=== PATIENT | female | born 1950 | race Caucasian/White ===

== ENCOUNTER 2020-11-03 15:45 | Emergency (ER) | payer MEDICARE, SELFPAY ==
[2020-11-03 16:22] VITALS: BP 112/70; PULSE 67; RESP 18; TEMP 36.8; O2SAT 98; BMI 25.0
--- NOTE | 2020-11-03 16:36 | XR_ITS ---
PROCEDURE INFORMATION: Exam: XR Right Ankle Exam date and time: 11/03/2020 4:36 PM Age: 70 years old Clinical indication: Injury or trauma; Fall; Blunt trauma; Patient HX: Patient twisted right ankle and fell while wearing flip flops. TECHNIQUE: Imaging protocol: XR Right ankle. Views: 3 or more views. COMPARISON: No relevant prior studies available. FINDINGS: Bones/joints: Minimal cortical comminution at the tip of the medial malleolus, favoring a tiny avulsion injury. No other acutely displaced fractures are identified. There is no evidence of joint dislocation. No aggressive osseous lesions. Soft tissues: There is soft tissue swelling. IMPRESSION: Tiny avulsion injury at the tip of the medial malleolus.
--- NOTE | 2020-11-03 16:36 | XR_ITS ---
PROCEDURE INFORMATION: Exam: XR Left Knee Exam date and time: 11/03/2020 4:36 PM Age: 70 years old Clinical indication: Injury or trauma; Fall; Blunt trauma; Patient HX: Patient was wearing flip flops when she twisted right ankle and fell injuring left knee. TECHNIQUE: Imaging protocol: XR Left knee. Views: 3 views. COMPARISON: No relevant prior studies available. FINDINGS: Bones/joints: Osseous anatomic alignment is well preserved. No acutely displaced fracture or dislocation. Joint spaces are well preserved. Soft tissues: No significant soft tissue swelling. IMPRESSION: No acute findings.
[2020-11-03 17:30] VITALS: BP 112/70; PULSE 67; RESP 18; TEMP 36.8; O2SAT 98; BMI 25.0
--- NOTE | 2020-11-03 17:57 | HMH.EDUTC ---
[facility] [place] Disposition Clinical Impression: Avulsion fracture of ankle Qualifiers: Encounter type: initial encounter Fracture type: closed Laterality: right Qualified Code(s): S82.891A - Other fracture of right lower leg, initial encounter for closed fracture Disposition: Home, Self-Care Condition on Discharge: Good Instructions: DI for Ankle Fracture Additional Instructions: Weightbearing as tolerated rest Ice with cold pack for 20 minutes remove may repeat for comfort every hour Bret wrap for support and swelling no less in the shower. Be sure not too tight but not to lose either Elevate with ankle above your heart as much as possible to help reduce swelling and therefore pain Ibuprofen every 6 hours as needed for pain or inflammation. If needs something more you can take Tylenol every 4 hours as needed as long as her primary care has told he was okayed for you to take both. If improving any do not need to follow-up you can bring begin exercising 2-3 weeks after injury. Follow-up immediately if new or worsening symptoms or no noticeable improvement over the next 3-[address] munoz on wednesday for appointment Referrals: Annemarie Medellin PA [Primary Care Provider] - Deanna Munoz DPM [Staff Physician] - Time of Disposition: 18:06 Medical Decision Making - Robb Inquiry Pt receiving controlled substance: No Vital Signs: 11/03/20 16:22 Temperature 98.2 F Temperature Source Oral Pulse Rate [Right] 67 Respiratory Rate 18 Blood Pressure [Right Arm] 112/70 Blood Pressure Mean [Right Arm] 84 02 Sat by Pulse Oximetry 98 Oxygen Delivery Method Room Air [facility] [place] HPI - General Chief complaint: Urgent Treatment Center Stated complaint: AO [id number] @[id number] fell injurede ankle and knee Time Seen by Provider: 11/03/20 18:01 Mode of Arrival: Wheelchair Source of Information: Patient Limitations: No Limitations Description of Symptoms (Recalled from Triage Doc. by RN): Patient presents to ED triage with right ankle swelling and left knee pain after a mechanical fall this afternoon. Patient denies LOC, denies hitting her head. - History of Present Illness Provider Complaint: 70 yr old female presents with right ankle swelling and left knee pain after a fall this afternoon. Patient denies LOC, denies hitting her head. - Related Data Allergies Allergy/AdvReac Type Severity Reaction Status Date / Time DOXYCYCLINE Allergy Unknown Uncoded 03/02/17 14:32 [facility] History - Hepatitis A Screen Attestation statement:: This patient has been screened for Hepatitis A risk factors. I have reviewed the patient's past medical history: Yes ROS Obtained: Yes Systems reviewed as appropriate & no additional complaints - Constitutional Constitutional: Reports system reviewed and no additional complaints, except as docu, Denies fever(s) - Eyes Eyes: Reports system reviewed and no additional complaints, except as docu, Denies blurry vision - ENT Ears, Nose, Mouth, and Throat: Reports system reviewed and no additional complaints, except as docu, Denies sore throat - Cardiovascular Cardiovascular: Reports system reviewed and no additional complaints, except as docu, Denies chest pain at rest - Respiratory Respiratory: Reports system reviewed and no additional complaints, except as docu, Denies cough - Gastrointestinal Gastrointestingal: Reports: system reviewed and no additional complaints, except as docu. Denies: abdominal pain - Genitourinary Female Genitourinary: Reports system reviewed and no additional complaints, except as docu - Musculoskeletal Musculoskeletal: Reports system reviewed and no additional complaints, except as docu, Reports as per HPI, Reports joint pain, Reports joint stiffness, Reports limited range of motion - Integumentary/Breasts Skin/Breast: Reports system reviewed and no additional complaints, except as docu, Denies rash - Neurologic Neurologic: Reports system reviewed and no additional complaints, ex
[2020-11-03 18:22] VITALS: BP 112/70; PULSE 67; RESP 18; TEMP 36.8; O2SAT 98
== END 2020-11-03 18:23 | disposition home or self-care (01) ==
LOC: ER 16:34 → UTC 16:35
PROVIDERS: Emergency Provider Nurse Practitioner Family; PCP Nurse Practitioner Family
DX: S82.891A Other fracture of right lower leg, initial encounter for closed fracture (principal)
CPT/HCPCS: 29515; 73562; 73610; 99202; G0463

== ENCOUNTER → 2020-12-10 09:29 | Outpatient (CLI) | payer MEDICARE, SELFPAY ==
--- NOTE | 2020-12-10 09:33 | XR_ITS ---
PROCEDURE: XR ANKLE WT BEARING RT MIN 3V CLINICAL INDICATION: fracture eval COMPARISON: CR XR ANKLE RT MIN 3V from 11/03/2020 FINDINGS: Bones: Small calcific density at the tip the medial malleolus once again noted not significantly changed. May represent a small avulsion injury age indeterminate. Joints: The joint spaces are well-preserved. No significant degenerative/arthritic changes. No erosive changes evident. Other findings:None. IMPRESSION: No change small suspected avulsion fracture at the tip the medial malleolus Dictated by: Del Willett MD 12/10/2020 12:02 Del Willett MD in [place] 12/10/2020 12:02
== END ==
LOC: RAD 09:31
PROVIDERS: PCP Nurse Practitioner Family; Visit Provider Nurse Practitioner
DX: S82.51XA Displaced fracture of medial malleolus of right tibia, initial encounter for closed fracture (principal)
CPT/HCPCS: 73610

== ENCOUNTER 2021-07-10 14:25 | Emergency (ER) | payer MEDICARE, SELFPAY ==
[2021-07-10 14:35] VITALS: BP 183/78; PULSE 66; RESP 18; TEMP 36.6; O2SAT 98; BMI 24.7
[2021-07-10 15:18] VITALS: BP 190/77; PULSE 66; RESP 18; TEMP 36.7; O2SAT 98; BMI 24.7
--- NOTE | 2021-07-10 15:42 | HMH.EDUTC ---
[facility] [place] Disposition Clinical Impression: Mucous cyst of digit of right hand Disposition: Home, Self-Care Condition on Discharge: Good Instructions: DI for Epidermal Cyst Additional Instructions: Rest the extremity, Elevate the extremity as tolerated while you are resting. Take ibuprofen for pain. Apply the topical antibiotic ointment as directed. Follow up with Dr. Rodriguez (orthopedics). I put in a referral but you need to call his office and schedule an appointment. It is best if only an orthopedic physician or a hand surgeon cuts or drains anything on your hand. Follow up with your regular doctor. GO TO THE ER FOR ANY WORSENING SYMPTOMS Prescriptions: Mupirocin [Bactroban 2% Ointment 22gm tube] 1 applicatio TP TID 7 Days #1 gm Transmission Status: Received by [facility] #[id number] Referrals: Martha Mccrary APRN [Primary Care Provider] - Des Rodriguez MD [Staff Physician] - Time of Disposition: 15:57 Medical Decision Making - Medical Records Medical records reviewed: No: I reviewed the patient's medical records. - Robb Inquiry Pt receiving controlled substance: No Vital Signs: 07/10/21 14:35 07/10/21 15:18 07/10/21 16:05 Temperature 97.8 F 98.1 F 98.1 F Temperature Source Oral Oral Pulse Rate 66 Pulse Rate [Left Radial] 66 66 Respiratory Rate 18 18 18 Blood Pressure 190/77 H Blood Pressure [Left Arm] 183/78 H 190/77 H Blood Pressure Mean [Left Arm] 113 114 Blood Pressure Source [Left Arm] Automatic Cuff Blood Pressure Position [Left Arm] Sitting 02 Sat by Pulse Oximetry 98 98 Oxygen Delivery Method Room Air [facility] [place] HPI - General Stated complaint: rt ring finger pain Time Seen by Provider: 07/10/21 15:42 Mode of Arrival: Ambulatory Source of Information: Patient Limitations: No Limitations Description of Symptoms (Recalled from Triage Doc. by RN): pt states that she has a cyst on her right ring finger. she states that it has been there for awhile. and she gets them often HEENT Symptoms (Recalled from RN notes): No Resp Symptoms (Recalled from RN notes): No Skin Symptoms (Recalled from RN notes): No MS Symptoms (Recalled from RN notes): Yes Functional Status (Recalled from RN notes): wnl - History of Present Illness Provider Complaint: She has an open cyst on the palm side of her right right finger. This has been present for the past 2 to 3 weeks. She states that it has had some redness around it and some whitish drainage has came from it. She states that it catches on everything and that causes it to hurt. - Related Data Home Medications Medication Instructions Recorded Confirmed albuterol sulfate 2.5 mg CONTINUOUS NEBULIZATION ml 11/06/20 12/10/20 albuterol sulfate 90 mcg/actuation 1 puff INHALATION g 11/06/20 12/10/20 aerosol inhaler cyanocobalamin (vitamin B-12) 1,000 mcg PO tab 11/06/20 12/10/20 1,000 mcg tablet fluticasone fur. 100 mcg-umeclid ea INHALATION 11/06/20 12/10/20 62.5 mcg-vilant 25 mcg inhalat.powder hydroxyzine pamoate 50 mg capsule 50 mg PO cap 11/06/20 12/10/20 lisinopril 30 mg tablet 30 mg PO tab 11/06/20 12/10/20 meloxicam 15 mg tablet 15 mg PO tab 11/06/20 12/10/20 montelukast 10 mg tablet 10 mg PO tab 11/06/20 12/10/20 paroxetine HCl 40 mg tablet tab PO 11/06/20 12/10/20 pravastatin 20 mg tablet 20 mg PO tab 11/06/20 12/10/20 Previous Rx's Medication Instructions Recorded Mupirocin [Bactroban 2% Ointment 1 applicatio TP TID 7 Days #1 gm 07/10/21 22gm tube] Allergies Allergy/AdvReac Type Severity Reaction Status Date / Time doxycycline Allergy nausea Verified 12/10/20 10:29 DOXYCYCLINE Allergy Unknown Uncoded 03/02/17 14:32 - Worker's Comp Is this a Worker's Comp case?: No Is this an H Worker's Comp?: No Is this a [place] Worker's Comp?: No [facility] History - Hepatitis A Screen Attestation statement:: This patient has been screened for Hepatitis A risk factors.
[2021-07-10 16:05] VITALS: BP 190/77; PULSE 66; RESP 18; TEMP 36.7
== END 2021-07-10 16:08 | disposition home or self-care (01) ==
LOC: ER 14:37 → UTC 14:38
PROVIDERS: Emergency Provider Nurse Practitioner Family; PCP Nurse Practitioner Family
DX: M67.441 Ganglion, right hand (principal); I10 Essential (primary) hypertension; E78.5 Hyperlipidemia, unspecified; M19.90 Unspecified osteoarthritis, unspecified site; J44.9 Chronic obstructive pulmonary disease, unspecified; F32.A Depression, unspecified; F17.210 Nicotine dependence, cigarettes, uncomplicated; Z79.51 Long term (current) use of inhaled steroids; Z79.899 Other long term (current) drug therapy; Z88.8 Allergy status to other drugs, medicaments and biological substances; Z85.9 Personal history of malignant neoplasm, unspecified; Z82.49 Family history of ischemic heart disease and other diseases of the circulatory system; Z83.438 Family history of other disorder of lipoprotein metabolism and other lipidemia; Z83.3 Family history of diabetes mellitus
CPT/HCPCS: 99213; G0463

== ENCOUNTER 2023-05-04 11:47 | Emergency (ER) | payer SELFPAY ==
[2023-05-04] VITALS (11 sets, daily range): BP systolic 151–177; BP diastolic 63–132; PULSE 58–68; RESP 16–20; TEMP 36.6; O2SAT 94–99; BMI 25.0
--- NOTE | 2023-05-04 12:05 | PC.NURSE ---
DR ISRAEL AT BEDSIDE
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
[2023-05-04] MEDS: METHOCARBAMOL 500MG TABLET 750 MG PO (12:16)
[2023-05-04] MEDS: predniSONE 20MG TAB 40 MG PO (12:17)
--- NOTE | 2023-05-04 12:21 | PC.NURSE ---
PT TO CT
--- NOTE | 2023-05-04 12:25 | PC.NURSE ---
PT RETURNED FROM CT
== END 2023-05-04 14:24 | disposition home or self-care (01) ==
PROVIDERS: Emergency Provider Emergency Medicine; PCP Nurse Practitioner Family
DX: M54.12 Radiculopathy, cervical region (principal); M54.2 Cervicalgia; M79.601 Pain in right arm; J44.9 Chronic obstructive pulmonary disease, unspecified; F17.200 Nicotine dependence, unspecified, uncomplicated; V89.9XXA Person injured in unspecified vehicle accident, initial encounter
CPT/HCPCS: 72125; 99284

== ENCOUNTER 2023-12-22 16:00 | Outpatient (RCR) | payer MEDICARE, SELFPAY | END 2023-12-22 23:59 | disposition home or self-care (01) | LOC: PT 16:00 | PROVIDERS: Visit Provider Emergency Medicine | DX: M54.2 Cervicalgia (principal) | CPT/HCPCS: 97014; 97035; 97110; 97140; 97163; G0283 ==

== ENCOUNTER 2024-01-12 14:23 | Outpatient (POV) | payer MEDICARE, SELFPAY ==
[2024-01-12 14:35] VITALS: BP 130/58; PULSE 72; RESP 18; O2SAT 99; BMI 24.6
--- NOTE | 2024-01-12 14:54 | EXP.PAIN.OV ---
HPI Data of Consult Patient: new to practice Consult date: 01/12/24 Requesting Physician: Smita Kenney APRN Primary Care Provider: Martha Mccrary APRN Consult Narrative Reason for consult: Left shoulder pain History of present illness: Ms. Guillen is a 73 year old female who presents today as a new patient. She is a referral from Heather Mccrary's office. Today she rates her pain a 4 out of 10 however does state that with increased activity the pain has gotten much worse to at least a 5 or 6 out of 10. Patient states that she has had chronic left shoulder pain for years and that she did even see her office about 3 to 4 years ago and had injections with us. She states that these injections would significantly improve her left shoulder and that it got to where they work so well she did not need to come back. Patient does state that this episode has been going on for the last month of worsening pain. She states it was very severe the last couple of weeks and that she had limited range of motion. Patient states that the pain is a pins and needle sensation and it does interfere with her ability perform activities of daily living such as cooking and cleaning. Patient has tried [id number] medications along with gabapentin, heat and ice and topicals with minimal relief. Patient has been in physical therapy for the last 4 weeks and states this has seemed to help some. Patient does state overall that it has eased up somewhat with the overall combination of gabapentin and ice and physical therapy. Patient is interested in additional injection therapy. Her Robb has been reviewed and is appropriate. CC: Smita Kenney APRN [facility] Disclaimer: The information contained in this section may have been updated after the patient was seen, as this information can be updated by other users. Social History Smoking Status: Current every day smoker alcohol intake: never substance use type: denies use current occupational status: retired Travel in the last 8 weeks: None Review of Systems Review of Systems Review of systems:: pertinent systems reviewed and negative unless documented below Review of systems (narrative): Review of Systems: General: No recent weight changes, no fever, no sleep disturbances Respiratory: No cough, no shortness of air, no recurring pulmonary infections Cardiovascular/peripheral vascular: No chest pain, no palpitations, no edema, no shortness of breath Gastrointestinal: No new onset incontinence, normal bowel movements reported Genitourinary: No new onset incontinence Musculoskeletal: Left shoulder pain Psychiatric: [Normal mood/affect] Neurological: [Denies weakness in extremities], [denies balance issues] Meds Home Medications and Allergies Home Medications ?Medication ?Instructions ?Recorded ?Confirmed ?Type albuterol sulfate 2.5 mg/3 mL 2.5 mg continuous nebulization 11/06/20 12/10/20 History (0.083 %) solution for nebulization albuterol sulfate 90 mcg/actuation 1 puff inhalation 11/06/20 12/10/20 History aerosol inhaler cyanocobalamin (vitamin B-12) 1,000 mcg PO 11/06/20 12/10/20 History 1,000 mcg tablet (Vitamin B-12) fluticasone fur. 100 mcg-umeclid ea inhalation 11/06/20 12/10/20 History 62.5 mcg-vilant 25 mcg inhalat.powder (Trelegy Ellipta) hydroxyzine pamoate 50 mg capsule 50 mg PO 11/06/20 12/10/20 History lisinopril 30 mg tablet 30 mg PO 11/06/20 12/10/20 History meloxicam 15 mg tablet 15 mg PO 11/06/20 12/10/20 History montelukast 10 mg tablet 10 mg PO 11/06/20 12/10/20 History paroxetine HCl 40 mg tablet tab PO 11/06/20 12/10/20 History pravastatin 20 mg tablet 20 mg PO 11/06/20 12/10/20 History mupirocin 2 % topical ointment 1 applicatio TP TID 7 days ##1 07/10/21 Rx methocarbamol 750 mg tablet 750 mg PO TID 5 days #15 tabs 05/04/23 Rx prednisone 20 mg tablet 40 mg (2 x 20 mg) PO DAILY 5 days 05/04/23 Rx #10 tabs New Prescriptions to Start Prescriptions: Allergies Allergy/AdvReac Type Severity Reaction Status Date / Time doxycycline Allergy nausea Verified 12/10/20 10:29 DOXYCYCLINE Allergy Unknown Uncoded 03/02/17 14:32 Objective Narrative: Physical Exam: General: Alert and oriented x3, no acute distress, pleasant and cooperative Lungs: Respirations even and unlabored, symmetrical chest expansion Eyes: PERRL Musculoskeletal: Flexion and extension of left shoulder somewhat guarded secondary to pain, popping and clicking with range of motion movements Neurological: Speech clear, no gross sensory deficit Assessment and Plan *Assessment and plan (1) Left shoulder pain: Status: Acute Qualifiers: Chronicity: chronic Qualified Code(s): M25.512 - Pain in left shoulder; G89.29 - Other chronic pain Category: Medical Code(s): M25.512 - Pain in left shoulder Plan Patient is experiencing significant pain throughout her left shoulder with limited range of motion and popping and clicking. Patient was counseled that she may benefit from a left shoulder intra-articular injection. Risk and benefits were discussed with the patient and she would like to proceed forward with this plan of care. Patient has tried and failed conservative therapy including continued at home stretching exercise for longer than 12 weeks as well as ongoing physical therapy in the last 4 weeks. Patient will be scheduled for a left shoulder intra-articular injection. Patient will be also ordered a compounded cream. Patient has been instructed to contact the clinic with any concerns before the next appointment. Dr. Carr has reviewed this note and agrees with this plan of care. This note was dictated using voice recognition software and make contain errors or omissions. All injections are used with Lidocaine or Bupivacaine and Depo Medrol.
== END 2024-01-12 23:59 | disposition home or self-care (01) ==
LOC: SC.PAIN 14:24
PROVIDERS: PCP Nurse Practitioner Family; Visit Provider Nurse Practitioner Family
DX: M25.512 Pain in left shoulder (principal); G89.29 Other chronic pain; Z73.89 Other problems related to life management difficulty
CPT/HCPCS: 99202; G0463

== ENCOUNTER 2024-02-08 11:14 | Day surgery (SDC) | payer MEDICARE, SELFPAY ==
[2024-02-08 11:36] VITALS: BP 151/48; PULSE 80; RESP 16; TEMP 36.5; O2SAT 97; BMI 24.4
[2024-02-08] MEDS: methylPREDNISolone ACETATE 80MG/ML VIAL 80 MG (11:56)
[2024-02-08] MEDS: LIDOCAINE 1% 5ML PF VIAL 5 ML (11:56)
[2024-02-08] MEDS: BUPIVACAINE 0.25% 10ML INJ 25 MG IJ (11:56)
--- NOTE | 2024-02-08 12:00 | EXP.PAIN.PRO ---
Procedure Date: 02/08/24 Time: 11:45 Anesthesiologist:: Oli Nuñez CRNA Complications:: None Pre-procedure Diagnosis:: DJD left shoulder. Chronic left shoulder pain. Post-procedure Diagnosis:: Same. Indications for Procedure:: Patient is a very pleasant 73-year-old female who comes our clinic today for left intra-articular shoulder injection of cortisone and local anesthetic. Patient describes left shoulder pain as intermittent, dull, sharp, stabbing. Patient has 5/5 strength in the left arm. However, limited range of motion secondary to left shoulder pain. She rates her pain today 5/10. However, late last week her pain was 10/10. Procedure Details:: Procedure Details: Left shoulder intra-articular injection Informed consent was obtained risk and benefits of the procedure were explained to the patient. Patient was taken to the procedure room. The Left shoulder was prepped using ChloraPrep. A 25-gauge needle was used posteriorly to inject 10 mL bupivacaine 0.25% and Depo-Medrol 40 mg. Patient tolerated procedure well with no complications. Plan and Disposition:: Patient was discharged without incident.
[2024-02-08 12:01] VITALS: BP 155/74; PULSE 73; RESP 16; O2SAT 97
== END 2024-02-08 12:01 | disposition home or self-care (01) ==
PROVIDERS: PCP Nurse Practitioner Family; Visit Provider Nurse Anesthetist, Certified Registered
DX: M19.012 Primary osteoarthritis, left shoulder (principal); M25.512 Pain in left shoulder; G89.29 Other chronic pain
CPT/HCPCS: 20610; J1010

== ENCOUNTER 2024-03-02 13:30 | Outpatient (POV) | payer MEDICARE, SELFPAY ==
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
[2024-03-02 15:26] VITALS: BP 123/73; PULSE 73; RESP 14; O2SAT 97; BMI 24.4
== END 2024-03-02 23:59 | disposition home or self-care (01) ==
LOC: SC.PAIN 13:31
PROVIDERS: PCP Nurse Practitioner Family; Visit Provider Nurse Practitioner Family
DX: M50.10 Cervical disc disorder with radiculopathy, unspecified cervical region (principal); F17.210 Nicotine dependence, cigarettes, uncomplicated; Z73.89 Other problems related to life management difficulty
CPT/HCPCS: 99212; G0463

== ENCOUNTER 2024-03-28 12:32 | Day surgery (SDC) | payer MEDICARE, SELFPAY ==
[2024-03-28 13:00] VITALS: BP 150/69; PULSE 70; RESP 16; TEMP 36.8; O2SAT 95; BMI 24.4
[2024-03-28] MEDS: IOPAMIDOL-200 (41%);10ML VIAL IV (13:18)
[2024-03-28 13:24] VITALS: BP 132/78; PULSE 69; RESP 18; O2SAT 95
--- NOTE | 2024-03-28 13:40 | P.PCN_ITS ---
Procedure Date: 03/28/24 Time: 13:15 Anesthesiologist:: Oli Nuñez CRNA Complications:: None Pre-procedure Diagnosis:: Degenerative disc cervical spine multilevels. Cervical radiculopathy. Cervical spondylosis. Cervical disc bulge C5-6, C6-7. Post-procedure Diagnosis:: Same. Indications for Procedure:: Patient is a pleasant 73-year-old female comes our clinic today for cervical epidural steroid injection. Patient describes cervical neck pain as posterior, dull, aching. Also, bilateral shoulder and arm radicular symptoms at times. She rates her pain 8/10. Procedure Details:: Procedure:Cervical epidural steroid injection Informed consent was obtained and the risks and benefits of the procedure were explained to the patient. The patient was taken to the procedure room and noninvasive monitors placed, including noninvasive blood pressure cuff and pulse oximeter. The neck was prepped using Chloraprep as a cleansing solution. The C6- C7 interspace was viewed using fluroscopy. The skin and subcutaneous tissues were anesthetized using lidocaine 1.5% and a 25-gauge needle. After this an 18- gauge Touhy epidural needle was placed into the C6-C7 interspace under fluroscopy guidance and advanced using loss of resistance to air until the epidural space was encountered. After confirmation of needle placement in the epidural space using contrast dye, a solution containing normal saline, 2 mL and Depo-Medrol 80 mg was incrementally injected into the cervical epidural space.~ The patient tolerated the procedure well with no complications. The patient was observed in the Pain Clinic and then discharged home neurologically intact. Plan and Disposition:: Patient was discharged without incident.
== END 2024-03-28 13:24 | disposition home or self-care (01) ==
PROVIDERS: PCP Nurse Practitioner Family; Visit Provider Nurse Anesthetist, Certified Registered
DX: M50.30 Other cervical disc degeneration, unspecified cervical region (principal); M47.22 Other spondylosis with radiculopathy, cervical region
CPT/HCPCS: 62321; J1010; Q9966

== ENCOUNTER 2024-04-26 13:08 | Outpatient (POV) | payer MEDICARE, SELFPAY ==
--- NOTE | 2024-04-26 13:38 | EXP.PAIN.SOA ---
[facility] Disclaimer: The information contained in this section may have been updated after the patient was seen, as this information can be updated by other users. Medical History (Updated 03/02/24 @ 14:04 by Smita Kenney APRN) HLD (hyperlipidemia) High blood pressure Social History Smoking Status: Current every day smoker alcohol intake: never substance use type: denies use current occupational status: other Travel in the last 8 weeks: None PM Subjective & Objective Subjective Subjective:: Patient is a pleasant 74-year-old female who presents today for follow-up of cervical epidural steroid injection C6-C7 on 03/28/2024. Today she rates her pain a 0 out of 10. Patient states she has had at least 80% improvement following this injection and feels like it is still helping continuously. Patient states she has been able to move around more with decreased pain and improved function. Patient denies any other changes. Patient states that her left shoulder that we had done an intra-articular injection in January that did 75% improvement is still seeming to be working. Her Robb has been reviewed and is appropriate. Review of Systems: General: No recent weight changes, no fever, no sleep disturbances Respiratory: No cough, no shortness of air, no recurring pulmonary infections Cardiovascular/peripheral vascular: No chest pain, no palpitations, no edema, no shortness of breath Gastrointestinal: No new onset incontinence, normal bowel movements reported Genitourinary: No new onset incontinence Musculoskeletal: Neck pain Psychiatric: [Normal mood/affect] Neurological: [Denies weakness in extremities], [denies balance issues] Pain at rest (0-10 scale): 0 Objective Objective:: Physical Exam: General: Alert and oriented x3, no acute distress, pleasant and cooperative Lungs: Respirations even and unlabored, symmetrical chest expansion Eyes: PERRL Musculoskeletal: Flexion and extension of cervical [spine] within normal limits Neurological: Speech clear, no gross sensory deficit Has patient had previous pain injection?: Yes Percent improvement in pain since last injection: 80% Conservative treatment options previously tried: Home exercise plan Length of treatment: Longer than 12 weeks Meds Home Medications and Allergies Home Medications ?Medication ?Instructions ?Recorded ?Confirmed ?Type albuterol sulfate 2.5 mg/3 mL 2.5 mg continuous nebulization . 11/06/20 03/28/24 History (0.083 %) solution for nebulization albuterol sulfate 90 mcg/actuation 1 puff inhalation . 11/06/20 03/28/24 History aerosol inhaler cyanocobalamin (vitamin B-12) 1,000 mcg PO . 11/06/20 03/28/24 History 1,000 mcg tablet (Vitamin B-12) fluticasone fur. 100 mcg-umeclid 0 ea inhalation . 11/06/20 03/28/24 History 62.5 mcg-vilant 25 mcg inhalat.powder (Trelegy Ellipta) hydroxyzine pamoate 50 mg capsule 50 mg PO DAILY 11/06/20 03/28/24 History lisinopril 30 mg tablet 30 mg PO DAILY 11/06/20 03/28/24 History meloxicam 15 mg tablet 15 mg PO DAILY 11/06/20 03/28/24 History montelukast 10 mg tablet 10 mg PO DAILY 11/06/20 03/28/24 History paroxetine HCl 40 mg tablet 20 tab PO DAILY 11/06/20 03/28/24 History pravastatin 20 mg tablet 20 mg PO DAILY 11/06/20 03/28/24 History mupirocin 2 % topical ointment 1 applicatio TP TID 7 days ##1 07/10/21 03/28/24 Rx methocarbamol 750 mg tablet 750 mg PO TID 5 days #15 tabs 05/04/23 03/28/24 Rx New Prescriptions to Start Prescriptions: Allergies Allergy/AdvReac Type Severity Reaction Status Date / Time doxycycline Allergy nausea Verified 03/28/24 13:00 Assessment and Plan *Assessment and plan (1) Degenerative disc disease, cervical: Status: Acute Category: Medical Code(s): M50.30 - Other cervical disc degeneration, unspecified cervical region (2) Left shoulder pain: Status: Acute Qualifiers: Chronicity: chronic Qualified Code(s): M25.512 - Pain in left shoulder; G89.29 - Other chronic pain Category: Medical Code(s): M25.512 - Pain in left shoulder Plan Patient has had significant improvement following her cervical epidural and does not require any additional injection therapy at this time. Patient will return to clinic in 6 weeks for reevaluation of symptoms and plan of care. Patient has been instructed to contact the clinic with any concerns before the next appointment. Dr. Carr has reviewed this note and agrees with this plan of care. This note was dictated using voice recognition software and make contain errors or omissions. All injections are used with Lidocaine, Bupivacaine and Depo Medrol. Occasionally urine drug screen is needed to verify patient's compliance with our office pain contract. This is ordered based off specific treatments related to chronic pain with the potential to abuse certain medications.
[2024-04-26 13:53] VITALS: BP 122/55; PULSE 73; RESP 18; O2SAT 95; BMI 25.1
== END 2024-04-26 23:59 | disposition home or self-care (01) ==
LOC: SC.PAIN 13:09
PROVIDERS: PCP Nurse Practitioner Family; Visit Provider Nurse Practitioner Family
DX: M50.30 Other cervical disc degeneration, unspecified cervical region (principal); M25.512 Pain in left shoulder; G89.29 Other chronic pain; F17.200 Nicotine dependence, unspecified, uncomplicated
CPT/HCPCS: 99212; G0463

== ENCOUNTER 2024-07-26 09:47 | Outpatient (POV) | payer MEDICARE, SELFPAY ==
--- NOTE | 2024-07-26 10:01 | A.OFFVIS_ITS ---
[facility] Disclaimer: The information contained in this section may have been updated after the patient was seen, as this information can be updated by other users. Medical History HLD (hyperlipidemia) High blood pressure Social History Smoking Status: Current every day smoker alcohol intake: never substance use type: denies use current occupational status: other Travel in the last 8 weeks?: None PM Subjective & Objective Subjective Subjective:: Patient is a pleasant 74-year-old female who presents today for worsening neck and radiating pain to her bilateral shoulders and down her right arm with numbness and tingling. She rates this a 9 out of 10. She denies any new trauma or injury. Patient does state that she feels like her last injection has officially worn off and that this pain started to increase as of last week. Patient does state the pain is interfering with her ability perform activities of daily living such as cooking and cleaning. Patient does want to see about additional injections as it did provide significant relief. Her Robb has been reviewed and is appropriate. Review of Systems: General: No recent weight changes, no fever, no sleep disturbances Respiratory: No cough, no shortness of air, no recurring pulmonary infections Cardiovascular/peripheral vascular: No chest pain, no palpitations, no edema, no shortness of breath Gastrointestinal: No new onset incontinence, normal bowel movements reported Genitourinary: No new onset incontinence Musculoskeletal: Neck pain, bilateral shoulder pain, right arm numbness tingling Psychiatric: [Normal mood/affect] Neurological: [Denies weakness in extremities], [denies balance issues] Pain at rest (0-10 scale): 9 Objective Objective:: Physical Exam: General: Alert and oriented x3, no acute distress, pleasant and cooperative Lungs: Respirations even and unlabored, symmetrical chest expansion Eyes: PERRL Musculoskeletal: Flexion and extension of cervical [spine] somewhat guarded secondary to pain, [antalgic gait noted] positive Spurling's test Neurological: Speech clear, no gross sensory deficit Has patient had previous pain injection?: No Conservative treatment options previously tried: Home exercise plan Length of treatment: Longer than 12 weeks Meds Home Medications and Allergies Home Medications ?Medication ?Instructions ?Recorded ?Confirmed ?Type albuterol sulfate 2.5 mg/3 mL 2.5 mg continuous nebulization . 11/06/20 04/26/24 History (0.083 %) solution for nebulization albuterol sulfate 90 mcg/actuation 1 puff inhalation . 11/06/20 04/26/24 History aerosol inhaler cyanocobalamin (vitamin B-12) 1,000 mcg PO . 11/06/20 04/26/24 History 1,000 mcg tablet (Vitamin B-12) fluticasone fur. 100 mcg-umeclid 0 ea inhalation . 11/06/20 04/26/24 History 62.5 mcg-vilant 25 mcg inhalat.powder (Trelegy Ellipta) hydroxyzine pamoate 50 mg capsule 50 mg PO DAILY 11/06/20 04/26/24 History lisinopril 30 mg tablet 30 mg PO DAILY 11/06/20 04/26/24 History meloxicam 15 mg tablet 15 mg PO DAILY 11/06/20 04/26/24 History montelukast 10 mg tablet 10 mg PO DAILY 11/06/20 04/26/24 History paroxetine HCl 40 mg tablet 20 tab PO DAILY 11/06/20 04/26/24 History pravastatin 20 mg tablet 20 mg PO DAILY 11/06/20 04/26/24 History mupirocin 2 % topical ointment 1 applicatio TP TID 7 days ##1 07/10/21 04/26/24 Rx methocarbamol 750 mg tablet 750 mg PO TID 5 days #15 tabs 05/04/23 04/26/24 Rx New Prescriptions to Start Prescriptions: Allergies Allergy/AdvReac Type Severity Reaction Status Date / Time doxycycline Allergy nausea Verified 03/28/24 13:00 Assessment and Plan *Assessment and plan (1) Cervical radiculopathy: Status: Acute Category: Medical Code(s): M54.12 - Radiculopathy, cervical region (2) Degenerative disc disease, cervical: Status: Acute Category: Medical Code(s): M50.30 - Other cervical disc degeneration, unspecified cervical region Plan Patient is experiencing worsening pain in their neck with radiating tingling and burning sensations into their bilateral upper extremities. Patient did have limited range of motion of her cervical spine with a positive Spurling's test. I did discuss with the patient that I do believe they would benefit from a cervical epidural steroid injection. Risk and benefits were discussed with patient and they would like to proceed forward with this plan of care. Patient has tried and failed conservative therapy including oral medications, heat and ice, topicals, at home stretching exercise for longer than 12 weeks that was physician guided. Patient had her last cervical epidural in March that did pr ovide 80% relief and had lasted up until last week providing nearly 4 months of improvement. Patient will be scheduled for a BINU C6 or C7 under fluoroscopy. Patient denies any blood thinners. Patient has been instructed to contact the clinic with any concerns before the next appointment. Dr. Carr has reviewed this note and agrees with this plan of care. This note was dictated using voice recognition software and make contain errors or omissions. All injections are used with Lidocaine, Bupivacaine and dexamethasone. Occasionally urine drug screen is needed to verify patient's compliance with our office pain contract. This is ordered based off specific treatments related to chronic pain with the potential to abuse certain medications.
[2024-07-26 10:25] VITALS: BP 120/70; PULSE 72; RESP 14; O2SAT 96; BMI 27.0
== END 2024-07-26 23:59 | disposition home or self-care (01) ==
LOC: SC.PAIN 09:47
PROVIDERS: PCP Nurse Practitioner Family; Visit Provider Nurse Practitioner Family
DX: M50.10 Cervical disc disorder with radiculopathy, unspecified cervical region (principal); F17.200 Nicotine dependence, unspecified, uncomplicated; Z73.89 Other problems related to life management difficulty
CPT/HCPCS: 99212; G0463

== ENCOUNTER 2024-08-22 13:55 | Day surgery (SDC) | payer MEDICARE, SELFPAY ==
[2024-08-22 14:16] VITALS: BP 140/78; PULSE 67; RESP 18; O2SAT 98; BMI 24.9
[2024-08-22 14:20] VITALS: BP 154/52; PULSE 75; RESP 18; O2SAT 98
[2024-08-22] MEDS: DEXAMETHASONE 10MG/ML 1ML VIAL 10 MG (14:20)
[2024-08-22 14:21] VITALS: BP 154/52; PULSE 75; RESP 18; O2SAT 98
[2024-08-22 14:24] VITALS: BP 161/74; PULSE 68; RESP 18; O2SAT 97
[2024-08-22] MEDS: IOPAMIDOL-200 (41%);10ML VIAL 3 ML IV (14:34)
--- NOTE | 2024-08-22 14:49 | P.PCN_ITS ---
Procedure Date: 08/22/24 Time: 14:30 Anesthesiologist:: Oli Nuñez CRNA Complications:: None Pre-procedure Diagnosis:: Degenerative disc cervical spine multilevels. Cervical radiculopathy. Cervical spondylosis. Multilevel cervical facet arthropathy. Post-procedure Diagnosis:: Same. Indications for Procedure:: Patient is a very pleasant 74-year-old female comes our clinic today for cervical epidural steroid injection. Patient describes posterior cervical neck pain as constant, dull, aching. Also, she reports bilateral arm radicular symptoms at times. She reports responding very well to previous cervical epidural steroid injections at same level. She rates her pain 7/10. Procedure Details:: Procedure:Cervical epidural steroid injection Informed consent was obtained and the risks and benefits of the procedure were explained to the patient. The patient was taken to the procedure room and noninvasive monitors placed, including noninvasive blood pressure cuff and pulse oximeter. The neck was prepped using Chloraprep as a cleansing solution. The C6- C7 interspace was viewed using fluroscopy. The skin and subcutaneous tissues were anesthetized using lidocaine 1.5% and a 25-gauge needle. After this an 18- gauge Touhy epidural needle was placed into the C6-C7 interspace under fluroscopy guidance and advanced using loss of resistance to air until the epidural space was encountered. After confirmation of needle placement in the epidural space using contrast dye, a solution containing normal saline, 2 mL and Depo-Medrol 80 mg was incrementally injected into the cervical epidural space.~ The patient tolerated the procedure well with no complications. The patient was observed in the Pain Clinic and then discharged home neurologically intact. Plan and Disposition:: Patient was discharged without incident.
== END 2024-08-22 14:24 | disposition home or self-care (01) ==
LOC: SC.PAINP 13:57
PROVIDERS: PCP Nurse Practitioner Family; Visit Provider Nurse Anesthetist, Certified Registered
DX: M50.123 Cervical disc disorder at C6-C7 level with radiculopathy (principal); I10 Essential (primary) hypertension; E78.5 Hyperlipidemia, unspecified; F17.200 Nicotine dependence, unspecified, uncomplicated; Z79.899 Other long term (current) drug therapy; Z88.1 Allergy status to other antibiotic agents; Z79.51 Long term (current) use of inhaled steroids
CPT/HCPCS: 62321; J1100; Q9966